=== PATIENT | male | born 1945 | race Two or more races ===

== ENCOUNTER 2017-06-08 22:51 | Inpatient (IN) | payer MEDICARE, OTHER ==
[~2017-06-08] VITALS: Ht 162.6 cm; Wt 83.0 kg
[2017-06-08 23:25] VITALS: BP 137/80
--- NOTE | 2017-06-08 23:30 | NUR ---
RN NOTE PT ARRIVED ON [facility] VIA EMS TRANSPORT FROM [facility]. RECEIVED PT IN NO ACUTE DISTRESS. PT HAS SOB WITH O2 @ 6LPM AND TOLERATING WELL WITH O2 SAT @ 97%. PT HAS CLEAR LUNG SOUNDS IN ALL GATES UPON AUSCULTATION. PT IS A/O X 4 AND ABLE TO MAKE NEEDS KNOWN. PT PLACED ON TELE WITH SR ON THE MONITOR. PT C/O CHRONIC BACK PAIN OF 04/16. WILL CONTACT MD FOR PAIN MANAGEMENT ORDERS. PT HAS RAC 22G THAT IS CLEAN DRY INTACT AND PATENT WITH SALINE FLUSH. PT TRANSFERRED TO BED FROM [facility]. PT TOLERATED TRANSFER WELL. BED IN LOW LOCK POSITION WITH RIALS UP X 2. CALL LIGHT WITHIN REACH AND ALL SAFETY MEASURES ENSURED AND CARRIED OUT. WILL CONTINUE TO MONITOR PT. AWAITING ORDERS FROM ADMITTING MD.
--- NOTE | 2017-06-08 23:40 | NUR ---
RN NOTE RECEIVED REPORT FROM GABRIEL CATES IN [facility] FOR CONTINUITY OF CARE.
[2017-06-09] VITALS: BP 137/80
[2017-06-09] MEDS ORDERED: ACET-868 PO (00:05)
[2017-06-09] MEDS ORDERED: ECHI400C17 PO (00:05)
[2017-06-09] MEDS ORDERED: OMEP20TA20 PO (00:05)
[2017-06-09] MEDS ORDERED: MULT1TAB73 PO (00:05)
[2017-06-09] MEDS ORDERED: LUTE20CA PO (00:05)
[2017-06-09] MEDS ORDERED: NAPR500T3 PO (00:05)
[2017-06-09] MEDS ORDERED: ASPI-991 PO (00:05)
[2017-06-09] MEDS ORDERED: TICA90TA PO (00:05)
[2017-06-09] MEDS ORDERED: HYDR-3658 PO (00:05)
[2017-06-09] MEDS ORDERED: BUDE10.2 INH (00:05)
[2017-06-09] MEDS ORDERED: MEMA21CA PO (00:05)
[2017-06-09] MEDS ORDERED: TAMS0.4C34 PO (00:05)
[2017-06-09] MEDS ORDERED: VIT1CAPS6 PO (00:05)
[2017-06-09] MEDS ORDERED: FINA5TAB11 PO (00:05)
[2017-06-09] MEDS ORDERED: CALC-838 PO (00:05)
[2017-06-09] MEDS ORDERED: GABA600T2 PO (00:05)
[2017-06-09] MEDS ORDERED: FISH1CAP16 PO (00:05)
[2017-06-09] MEDS ORDERED: METO25TA6 PO (00:05)
[2017-06-09] MEDS ORDERED: ALBU2.5V13 NEB (00:16)
[2017-06-09] MEDS ORDERED: IV NS 0.9% 1,000 ML IV PRN (00:38)
[2017-06-09] MEDS ORDERED: MAGNESIUM HYDROXIDE 30 ML UDC PO PRN (01:00)
[2017-06-09] MEDS ORDERED: ENOXAPARIN SODIUM 40 MG/0.4 ML DISP.SYRIN SQ SCH ×2 (01:00→08:44)
[2017-06-09] MEDS ORDERED: ONDANSETRON HCL/PF 4 MG/2 ML VIAL IVP PRN (01:00)
[2017-06-09] MEDS ORDERED: Z GUARD REMEDY 2 OZ OINT TP PRN (01:00)
[2017-06-09] MEDS ORDERED: MAG HYDROX/AL HYDROX/SIMETH 30 ML UDC PO PRN (01:00)
[2017-06-09] MEDS ORDERED: ZOLPIDEM TARTRATE 5 MG TABLET PO PRN (01:00)
[2017-06-09 01:08] LABS: HEMATOCRIT 42 % (39-51); HEMOGLOBIN 14.2 g/dL (13.5-17.5); LYMPHOCYTES # (AUTO) 0.3 /CMM (0.8-4.8); LYMPHOCYTES % (AUTO) 3.6 % (20.0-44.0); MEAN CORPUSCULAR HEMOGLOBIN 33 PG (26.0-33.0); MEAN CORPUSCULAR HGB CONC 34 g/dl (31.0-36.0); MEAN CORPUSCULAR VOLUME 96 fL (80-96); MONOCYTES % (AUTO) 0.4 % (2.0-12.0); NEUTROPHILS # (AUTO) 7.5 /CMM (1.8-8.9); PLATELET COUNT (AUTO) 172 /CMM (150-450); RDW COEFFICIENT OF VARIATION 13.4 (11.5-15.0); RED BLOOD CELL COUNT(AUTO) 4.33 MIL/uL (4.5-6.0); WHITE BLOOD COUNT (AUTO) 7.9 K/uL (4.3-11.0)
[2017-06-09 01:17] LABS: CALCIUM, SERUM 8.8 mg/dL (8.5-10.1); CARBON DIOXIDE 25 mmol/L (21-32); CHLORIDE 103 mmol/L (98-107); CREATININE 1.4 mg/dL (0.6-1.3); GLUCOSE 232 mg/dL (74-106); POTASSIUM 4.2 mmol/L (3.5-5.1); SODIUM SERUM 139 mmol/L (136-145); UREA NITROGEN, BLOOD 19 mg/dL (7-18)
[2017-06-09 01:23] LABS: ALANINE AMINOTRANSFERASE 25 U/L (12-78); ALBUMIN 3.6 g/dL (3.4-5.0); ALKALINE PHOSPHATASE 57 U/L (46-116); ASPARTATE AMINOTRANSFERASE 17 U/L (15-37); BILIRUBIN,DIRECT 0.1 mg/dL (0.0-0.2); BILIRUBIN,TOTAL 0.4 mg/dL (0.2-1.0); MAGNESIUM 2.1 mg/dL (1.8-2.4); TOTAL PROTEIN, SERUM 6.5 g/dL (6.4-8.2)
[2017-06-09] MEDS ORDERED: HYDROCODONE/APAP 5/325MG 1 EACH TABLET ONE (01:31)
[2017-06-09] MEDS: HYDROCODONE/APAP 5/325MG 1 EACH TABLET PO PRN ×3 (01:36→13:07)
[2017-06-09 01:47] LABS: ABG BASE EXCESS 0.1 mmol/L; ABG OXYGEN SATURATION 96.6 % (92.0-98.5); ABG PCO2 31.6 mmHg (35.0-45.0); ABG PH 7.476 (7.350-7.450); ABG PO2 88.5 mmHg (75.0-100.0); AaDO2 160.4 mmHg; COHb 1.2 % (0.5-1.5); MetHb 0.2 % (0.0-1.5); O2Hb 95.2 % (94.0-97.0); SITE, ABG Left Radial; VENT MODE, BG Nasal Cannula
[2017-06-09 02:19] LABS: THYROID STIMULATING HORMONE 0.418 uIU/mL (0.358-3.74)
[2017-06-09] MEDS ORDERED: ACETAMINOPHEN 325 MG TABLET ONE ×2 (02:48→02:49)
[2017-06-09] MEDS: ACETAMINOPHEN 325 MG TABLET PO PRN ×2 (02:51→10:33)
[2017-06-09 04:00] VITALS: BP_SYST 157; BP_DIAS 72; BP_DIAS 77
[2017-06-09] MEDS ORDERED: ALBUTEROL FS 2.5 MG/0.5 ML VIAL.NEB NEB SCH (06:00)
--- NOTE | 2017-06-09 06:35 | NUR ---
RN CLOSING NOTE PT REMAINS IN NO ACUTE DISTRESS IN BED. PT TOLERATED CPAP WELL. PT IS NOW BACK ON NC @ 6LPM AND TOLERATING WELL WITH O2 SAT @ 96%. PT DID NOT HAVE ANY SIGNIFICANT CHANGE IN CONDITION DURING SHIFT. ALL NEEDS MET ALL ORDERS CARRIED OUT. WILL ENDORSE TO AM RN FOR CONTINUITY OF CARE.
[2017-06-09] MEDS ORDERED: PANTOPRAZOLE 40 MG TABLET.DR PO SCH (07:30)
[2017-06-09 08:00] VITALS: BP 135/72
[2017-06-09] MEDS: GABAPENTIN 400 MG CAPSULE PO SCH ×2 (08:40→13:10)
[2017-06-09] MEDS ORDERED: TAMSULOSIN 0.4 MG CAP.SR.24H PO SCH (09:00)
[2017-06-09] MEDS ORDERED: FINASTERIDE (5 MG) 5 MG TABLET PO SCH (09:00)
[2017-06-09] MEDS ORDERED: ASPIRIN EC 81 MG TABLET.DR PO SCH (09:00)
[2017-06-09] MEDS ORDERED: METOPROLOL TARTRATE 25 MG TABLET PO SCH (09:00)
[2017-06-09] MEDS ORDERED: TICAGRELOR 90 MG TABLET PO SCH (09:00)
[2017-06-09] MEDS ORDERED: MEMANTINE HCL 5 MG TABLET PO SCH ×2 (09:00→18:00)
[2017-06-09] MEDS ORDERED: Medication Not On Formulary EA (Budesonide/Formoterol Fumarate (Symbicort 160-4.5 Mcg In INH SCH (09:00)
[2017-06-09] MEDS ORDERED: POLYETHYLENE GLYCOL 3350 17 GM POWD.PACK PO PRN (10:30)
[2017-06-09 12:00] VITALS: BP 120/77
[2017-06-09] MEDS ORDERED: ALBUTEROL HALF STRENGTH 1.25 MG/3 ML VIAL.NEB NEB SCH (12:00)
[2017-06-09] MEDS ORDERED: IPRATROPIUM NEB FS 0.5 MG/2.5 ML AMPUL.NEB NEB SCH (12:00)
--- NOTE | 2017-06-09 13:20 | NUR ---
LOAN KEITH SEEN AND EXAMINED BY BY ROBY AT THIS TIME, ONE NEW VERBAL ORDER TO D/C IV FLUID
[2017-06-09 16:00] VITALS: BP 122/81
--- NOTE | 2017-06-09 16:40 | NUR ---
LEAVING AMA PROVIDED AMPLE EDUCATION REGARDING RISKS OF LEAVING AMA- PATIENT VERBALIZED UNDERSTANDING HOWEVER STATED THAT HE NO LONG WANTS TO BE TREATED AT THE HOSPITAL AND DOES NOT WANT TO STAY ANOTHER NIGHT REGARDLESS OF RISKS. PATIENT SAYS HE HAS ALL NECESSARY MEDICATION AT HOME INCLUDING OXYGEN. PATIENT IS ABLE TO AMBULATE WITH MILD SOB ON EXERTION. PATIENT STATES HAVING A FRIEND COMING TO PICK HIM UP. PATIENT SIGNED AMA FORM. ROBY PETIT AWARE AND SIGNED FORM WELL. PATIENT SIGNED BELONGINGS LIST, CONFIRMING HAVING ALL. VS CHECKED AND DOCUMENTED FOR 1600- STABLE. INCIDENT REPORT # [id number]
--- NOTE | 2017-06-09 16:43 | NUR ---
IV REMOVED, WRIST BAND REMOVED
== END 2017-06-09 17:07 | disposition left against medical advice (07) | DRG 191 ==
LOC: TELE1 22:51
PROVIDERS: ADMIT Internal Medicine; ATTEND Nurse Practitioner Acute Care
DX: J44.1 Chronic obstructive pulmonary disease with (acute) exacerbation (principal); J96.11 Chronic respiratory failure with hypoxia; G47.33 Obstructive sleep apnea (adult) (pediatric); I10 Essential (primary) hypertension; I70.0 Atherosclerosis of aorta; I73.9 Peripheral vascular disease, unspecified; N40.0 Benign prostatic hyperplasia without lower urinary tract symptoms; Z87.01 Personal history of pneumonia (recurrent); Z87.891 Personal history of nicotine dependence; Z99.81 Dependence on supplemental oxygen
CPT/HCPCS: 36415; 36600; 71020-TC; 80048-TC; 80076-TC; 82746; 82803-TC; 83735-TC; 84443-TC; 84484-TC; 85025-TC